=== PATIENT | female | born 1995 | race African-American/Black ===

== ENCOUNTER 2018-07-08 00:40 | Emergency (ER) | payer MEDICAID ==
[~2018-07-08] VITALS: Ht 162.6 cm; Wt 68.0 kg
--- NOTE | 2018-07-08 01:00 | NUR ---
TO BED 2 BIB S/O C/O GENERALIZED WEAKNESS, LOSS OF APPETITE, ABD PAIN WTIH NAUSEA X3 DAYS. PT AAOX4 NO ACUTE DISTRESS NOTED, RESP EVEN AND UNLABORED. URINE SAMPLE COLLECTED AND SENT TO LAB. PENDING ER MD BURNS.
--- NOTE | 2018-07-08 01:09 | NUR ---
ER MD AT BEDSIDE TO EVAL PT WITH ORDERS RECEIVED.
[2018-07-08] MEDS ORDERED: ONDANSETRON HCL/PF 4 MG/2 ML VIAL ONE (01:29)
[2018-07-08] MEDS ORDERED: ONDANSETRON HCL/PF 4 MG/2 ML VIAL IVP ONE (01:30)
[2018-07-08] MEDS ORDERED: IV NS 0.9% 1,000 ML BAG IV ONE (01:30)
[2018-07-08 01:40] LABS: APPEARANCE,URINE CLEAR (CLEAR); BILIRUBIN,URINE NEGATIVE (NEGATIVE); BLOOD, URINE TRACE-INTA Ery/uL (NEGATIVE); COLOR,URINE YELLOW (YELLOW); KETONES,URINE 3+ (NEGATIVE); LEUKOCYTE ESTERASE ,URINE NEGATIVE (NEGATIVE); NITRITE, URINE NEGATIVE (NEGATIVE); PROTEIN,URINE NEGATIVE (NEGATIVE); UGLUCOSE NEGATIVE (NEGATIVE)
--- NOTE | 2018-07-08 01:44 | NUR ---
RN AT BEDSIDE TO MEDICATE PT.
[2018-07-08 01:46] LABS: RBC,URINE 0-2 /HPF (0-2)
[2018-07-08 01:47] LABS: SQUAMOUS EPITHELIAL CELL,UR Many /HPF (None Seen); WBC,URINE 0-2 /HPF (0-3)
[2018-07-08 01:48] LABS: BACTERIA,URINE Few /HPF (None Seen); MUCUS,URINE Few /LPF (None Seen)
[2018-07-08 01:52] LABS: BASOPHILS % (AUTO) 0.4 % (0.0-2.0); EOSINOPHILS % (AUTO) 1.5 % (0.0-6.0); HEMATOCRIT 36 % (33-45); HEMOGLOBIN 12.3 g/dL (11.5-14.8); LYMPHOCYTES # (AUTO) 2.2 /CMM (0.8-4.8); LYMPHOCYTES % (AUTO) 33.4 % (20.0-44.0); MEAN CORPUSCULAR HGB CONC 34 g/dl (31.0-36.0); MEAN CORPUSCULAR VOLUME 91 fL (82-100); MONOCYTES # (AUTO) 0.4 /CMM (0.1-1.30); MONOCYTES % (AUTO) 5.7 % (2.0-12.0); NEUTROPHILS # (AUTO) 3.9 /CMM (1.8-8.9); PLATELET COUNT (AUTO) 182 /CMM (150-450); RED BLOOD CELL COUNT(AUTO) 3.97 MIL/uL (4.0-5.2); WHITE BLOOD COUNT (AUTO) 6.7 K/uL (4.3-11.0)
[2018-07-08 02:05] LABS: CALCIUM, SERUM 8.9 mg/dL (8.5-10.1); CREATININE 0.7 mg/dL (0.6-1.3); POTASSIUM 3.2 mmol/L (3.5-5.1)
[2018-07-08 02:11] LABS: ALBUMIN 3.7 g/dL (3.4-5.0); BILIRUBIN,DIRECT 0.1 mg/dL (0.0-0.2); BILIRUBIN,TOTAL 0.4 mg/dL (0.2-1.0); TOTAL PROTEIN, SERUM 7.6 g/dL (6.4-8.2)
[2018-07-08] MEDS ORDERED: POTASSIUM CHLORIDE 20 MEQ TAB.PRT.SR PO ONE ×2 (03:00→05:02)
--- NOTE | 2018-07-08 03:12 | NUR ---
ACTUARIAL ASSISTANT TO CUTTING AND CREASING PRESS OPERATOR AT BEDSIDE
--- NOTE | 2018-07-08 05:05 | NUR ---
IV removed. Catheter intact and site benign. Pressure and 4x4 applied to site. No bleeding noted. Patient discharged to home in stable condition. Written and verbal after care instructions given. Patient verbalizes understanding of instruction. ambulatory with a steady gait
[2018-07-08 05:07] VITALS: BP 119/67
== END 2018-07-08 05:09 | disposition home or self-care (01) ==
LOC: ER 00:44
DX: O26.891 Other specified pregnancy related conditions, first trimester (principal); R11.0 Nausea; R10.30 Lower abdominal pain, unspecified; J45.909 Unspecified asthma, uncomplicated; F41.9 Anxiety disorder, unspecified; F32.9 Major depressive disorder, single episode, unspecified; F12.90 Cannabis use, unspecified, uncomplicated; Z3A.01 Less than 8 weeks gestation of pregnancy
CPT/HCPCS: 36415; 76856-TC; 80048-TC; 80076-TC; 81000-TC; 83690-TC; 84702-TC; 84703-TC; 85025-TC; A4606; J2405; J7030; Z7610

== ENCOUNTER 2018-08-09 20:31 | Emergency (ER) | payer MEDICAID, OTHER ==
--- NOTE | 2018-08-09 21:13 | NUR ---
CALLED PT IN WAITING ROOM TO BE TRIAGED 3X, NO ANSWER
== END 2018-08-09 21:24 | disposition left against medical advice (07) ==
LOC: ER 20:36
DX: Z53.21 Procedure and treatment not carried out due to patient leaving prior to being seen by health care provider (principal)

== ENCOUNTER 2018-10-07 17:26 | Emergency (ER) | payer OTHER ==
[~2018-10-07] VITALS: Ht 167.6 cm; Wt 68.0 kg
[2018-10-07 17:26] VITALS: BP 123/81
--- NOTE | 2018-10-07 19:05 | NUR ---
ASSUMED CARE OF PT. REPORT REC'D FROM RAMYA JACOBS FOR [facility].
[2018-10-07 19:17] LABS: APPEARANCE,URINE Slightly Cloudy (CLEAR); BILIRUBIN,URINE Negative (NEGATIVE); BLOOD, URINE Negative Ery/uL (NEGATIVE); COLOR,URINE Yellow (YELLOW); KETONES,URINE Trace (NEGATIVE); LEUKOCYTE ESTERASE ,URINE Negative (NEGATIVE); NITRITE, URINE Negative (NEGATIVE); PROTEIN,URINE Negative (NEGATIVE); UGLUCOSE 250 MG/DL mg/dL (NEGATIVE)
[2018-10-07 19:34] LABS: BACTERIA,URINE Rare /HPF (None Seen); RBC,URINE 0-2 /HPF (0-2); SQUAMOUS EPITHELIAL CELL,UR Few /HPF (None Seen); WBC,URINE 0-2 /HPF (0-3)
--- NOTE | 2018-10-07 19:55 | NUR ---
Patient discharged to home in stable condition. Written and verbal after care instructions given. Patient verbalizes understanding of instruction. PT REC'D A COPY OF US FINDINGS AND ALL LABS.
== END 2018-10-07 19:59 | disposition home or self-care (01) ==
LOC: ER 17:29
DX: O26.852 Spotting complicating pregnancy, second trimester (principal); O99.512 Diseases of the respiratory system complicating pregnancy, second trimester; O99.342 Other mental disorders complicating pregnancy, second trimester; O99.332 Smoking (tobacco) complicating pregnancy, second trimester; J45.909 Unspecified asthma, uncomplicated; F41.9 Anxiety disorder, unspecified; F32.9 Major depressive disorder, single episode, unspecified; F17.200 Nicotine dependence, unspecified, uncomplicated; Z88.0 Allergy status to penicillin; Z3A.21 21 weeks gestation of pregnancy
CPT/HCPCS: 76805; 81001; 82962; 87086; 87210; 87491; 87591; 99284; A6402; 81000-TC